=== PATIENT | male | born 1960 | race Caucasian/White ===

== ENCOUNTER 2017-06-13 08:13 | Emergency (ER) | payer OTHER ==
[~2017-06-13] VITALS: Ht 175.3 cm; Wt 72.6 kg
[2017-06-13 09:40] VITALS: BP 173/91
[2017-06-13] MEDS ORDERED: KETOROLAC TROMETH 60MG/2ML VIAL IM ONE ×2 (11:36→12:00)
== END 2017-06-13 11:52 | disposition home or self-care (01) ==
LOC: ER 08:13 → EDBD 08:13 → ER 11:52
DX: R41.82 Altered mental status, unspecified (principal); S46.912A Strain of unspecified muscle, fascia and tendon at shoulder and upper arm level, left arm, initial encounter; S46.911A Strain of unspecified muscle, fascia and tendon at shoulder and upper arm level, right arm, initial encounter; X58.XXXA Exposure to other specified factors, initial encounter; Y93.89 Activity, other specified; Y92.89 Other specified places as the place of occurrence of the external cause; Y99.8 Other external cause status
CPT/HCPCS: 70450; J1885